=== PATIENT | male | born 1945 | race Caucasian/White ===

== ENCOUNTER 2024-08-29 20:39 | Inpatient (IN) | payer MEDICARE, OTHER ==
[2024-08-30] MEDS ORDERED: Acetaminophen 650 MG Suppository PR PRN (00:16)
[2024-08-30] MEDS ORDERED: Ondansetron PF 4 MG/2 ML Vial IVP PRN (00:16)
[2024-08-30 00:18] VITALS: BMI 21.2
[2024-08-30] MEDS: Dexamethasone 4 MG TAB PO SCH (02:16)
[2024-08-30] MEDS: Acetaminophen 325 MG TAB PO SCH (02:17)
[2024-08-30 04:07] LABS: #Basophils Less than 0.03 10x3/uL (0.0-0.2); #Eosinophils Less than 0.03 10x3/uL (0.0-0.7); %Basophils 0.1 % (0.0-1.0); %Monocytes 0.6 % (0.0-10.0); %Neutrophils 87.7 % (42.0-75.0); Hematocrit 37.3 % (42.0-52.0); Mean Corpuscular HGB CONC 32.2 g/dL (32.0-36.0); Mean Corpuscular Hemoglobin 29.9 pg (27.0-31.0); Mean Corpuscular Volume 92.8 fL (78.0-98.0); Mean Platelet Volume 9.9 fL (7.4-10.4); Platelet Count 209 10x3/uL (130-400); RBC Distribution Width 15.1 % (11.5-14.5); Red Blood Cell (RBC) Count 4.02 mill/uL (4.70-6.10)
[2024-08-30 04:29] LABS: ALT (SGPT) 25 U/L (8-55); AST (SGOT) 16 U/L (5-34); Albumin 3.5 g/dL (3.4-4.8); Alkaline Phosphatase 60 U/L (40-110); Anion Gap 15 mmol/L (10-20); BUN (Urea Nitrogen) 20 mg/dL (8.4-25.7); Bilirubin, Total 0.4 mg/dL (0.2-1.2); Calc. Creatinine Clearance 41 mL/min (70-130); Calcium 8.8 mg/dL (7.8-10.44); Carbon Dioxide 26 mmol/L (23-31); Chloride 106 mmol/L (98-107); Estimated GFR 70; Globulin 3.5 g/dL (2.4-3.5); Glucose 177 mg/dL (83-110); Sodium 143 mmol/L (136-145)
[2024-08-30] MEDS: Valsartan 80 MG TAB PO SCH (08:43)
[2024-08-30] MEDS: Famotidine 20 MG TAB PO SCH (08:44)
[2024-08-30] MEDS: Amlodipine 10 MG TAB PO SCH (08:44)
[2024-08-30] MEDS: Nebivolol HCl 5 MG TAB PO SCH (08:44)
[2024-08-30] MEDS: Aspirin 81 mg Enteric Coated Tablet PO SCH (08:44)
[2024-08-30] MEDS ORDERED: Famotidine 20 MG TAB PO SCH (09:00)
[2024-08-30] MEDS ORDERED: Aspirin 325 MG TAB PO SCH (09:00)
[2024-08-30] MEDS ORDERED: Famotidine/PF 20 mg/2ml Vial SLOW IVP SCH (09:00)
[2024-08-30] MEDS: Rosuvastatin 20 MG TAB PO SCH (21:29)
[2024-08-31] MEDS: Enoxaparin 30 MG (0.3 mL) SYRINGE SC SCH (10:03)
[2024-09-01] MEDS ORDERED: Proctozone-HC 30 GM TUBE TOP PRN (10:12)
[2024-09-01] MEDS: Hydrocortisone 2.5%/Pramoxine 1% CRM 30 GM TUBE TOP PRN (12:30)
[2024-09-01] MEDS: Ondansetron ODT 4 MG TAB PO PRN (12:40)
[2024-09-01 12:53] LABS: Bacteria/HPF None Seen HPF (None Seen); Bilirubin Negative (Negative); Blood, Urine 3+ (Negative); CAUTI Indications for Culture Dysuria,urgency,freq; Clarity Clear (Clear); Glucose, Urine (Dipstick) 150 mg/dL (Negative); Ketone, Urine Negative (Negative); Leukocyte Negative Leu/uL (Negative); Nitrite Negative (Negative); Protein, Urine (Dipstick) 70 mg/dL (Neg-Trace); RBC/HPF 0-3 HPF (0-3); Specific Gravity, Urine 1.019 (1.002-1.036); Squamous Epithelial None Seen HPF (0-3); Urobilinogen Normal mg/dL (Less than 2); WBC/HPF 0-3 HPF (0-3); pH, Urine 6.5 (5.0-9.0)
[2024-09-01 12:58] LABS: Urine Culture Reflex No No
[2024-09-01] MEDS: Valsartan 80 MG TAB PO SCH (20:36)
[2024-09-03] MEDS ORDERED: Thrombin 5000 UNITS/5 ML VIAL ONE ×2 (06:30→12:59)
[2024-09-03] MEDS ORDERED: Vancomycin 1 GM VIAL ONE (06:30)
[2024-09-03] MEDS ORDERED: Bacitracin Zinc Ointment 30 gm TUBE ONE (06:30)
[2024-09-03] MEDS ORDERED: PROPOFOL 20 ML ONE (06:55)
[2024-09-03] MEDS ORDERED: Fentanyl 250 MCG/5 ML VIAL ONE (06:55)
[2024-09-03] MEDS ORDERED: Rocuronium Bromide 10 MG/ML (10ML VIAL) ONE (06:56)
[2024-09-03] MEDS ORDERED: Lidocaine 1% PF 5 ML VIAL ONE (06:56)
[2024-09-03] MEDS ORDERED: CEFAZOLIN 2 GM VIAL ONE (07:07)
[2024-09-03] MEDS ORDERED: Sterile Water 10 ML ONE (07:37)
[2024-09-03] MEDS ORDERED: Dexamethasone 20 MG/5 ML VIAL ONE (08:21)
[2024-09-03] MEDS ORDERED: SUGAMMADEX SODIUM 200 MG/2 ML VIAL ONE (09:47)
[2024-09-03] MEDS ORDERED: HYDROmorphone 2 MG/ML VIAL SLOW IVP PRN (10:04)
[2024-09-03] MEDS ORDERED: Ondansetron PF 4 MG/2 ML Vial IVP PRN (10:04)
[2024-09-03] MEDS ORDERED: diphenhydrAMINE 50 MG/ML VIAL IM PRN (10:04)
[2024-09-03] MEDS ORDERED: diphenhydrAMINE 25 MG CAP PO PRN (10:04)
[2024-09-03] MEDS ORDERED: Naloxone HCl 0.4 mg/ml Vial IV PRN (10:04)
[2024-09-03] MEDS ORDERED: Promethazine HCl 25 MG/ML VIAL IM PRN ×2 (10:04)
[2024-09-03] MEDS ORDERED: Ondansetron HCl/PF 4 MG/2 ML Vial IVP PRN (10:04)
[2024-09-03] MEDS ORDERED: diphenhydrAMINE 50 MG/ML VIAL IVP PRN (10:04)
[2024-09-03] MEDS ORDERED: HYDROmorphone/PF 10 MG in Sodium Chloride 0.9% 99 ML IV PRN (10:04)
[2024-09-03] MEDS ORDERED: Communication Order-Pharmacy FS SCH (10:15)
[2024-09-03] MEDS ORDERED: PHENYLEPHRINE-NS 100 MCG/ML 10 ML SYRINGE ONE (10:18)
[2024-09-03] MEDS ORDERED: Sterile Water 20 ML ONE (10:19)
[2024-09-03] MEDS ORDERED: CEFAZOLIN 1 GM VIAL ONE (10:19)
[2024-09-03] MEDS ORDERED: Phenylephrine 10 MG/ML VIAL ONE (10:52)
[2024-09-03] MEDS ORDERED: Sodium Chloride 0.9% 250 ML 250 ML ONE (10:52)
[2024-09-03] MEDS ORDERED: Vecuronium 10 MG VIAL ONE (10:57)
[2024-09-03] MEDS ORDERED: Ondansetron PF 4 MG/2 ML Vial ONE (11:43)
[2024-09-03] MEDS ORDERED: Lidocaine 2% PF 5 ML VIAL ONE (12:39)
[2024-09-03] MEDS ORDERED: Ketorolac Tromethamine 30 MG (1 mL) VIAL IVP PRN (12:45)
[2024-09-03] MEDS ORDERED: Milk Of Magnesia 30 ML UDCUP PO PRN (12:45)
[2024-09-03] MEDS ORDERED: Mag-Al 1200 mg/1200 mg/30 ML UDCUP PO PRN (12:45)
[2024-09-03] MEDS ORDERED: Labetalol HCl 100 MG/20 ML VIAL ONE (12:57)
[2024-09-03] MEDS: Sodium Chloride 0.9% 1,000 ML IV SCH (15:24)
[2024-09-03] MEDS: CEFAZOLIN 2 GM in Sodium Chloride 0.9% 100 ML IVPB SCH (17:44)
[2024-09-04] MEDS: hydrALAZINE 20 MG/ML VIAL SLOW IVP PRN (01:18)
[2024-09-04 05:31] LABS: Anion Gap 16 mmol/L (10-20); BUN (Urea Nitrogen) 25 mg/dL (8.4-25.7); Calc. Creatinine Clearance 49 mL/min (70-130); Calcium 8.3 mg/dL (7.8-10.44); Carbon Dioxide 22 mmol/L (23-31); Chloride 102 mmol/L (98-107); Estimated GFR 86; Glucose 122 mg/dL (83-110); Potassium 3.4 mmol/L (3.5-5.1); Sodium 137 mmol/L (136-145)
[2024-09-04 05:39] LABS: #Basophils Less than 0.03 10x3/uL (0.0-0.2); #Eosinophils Less than 0.03 10x3/uL (0.0-0.7); %Basophils 0.1 % (0.0-1.0); %Lymphocytes 2.1 % (21.0-51.0); %Monocytes 9.5 % (0.0-10.0); %Neutrophils 87.8 % (42.0-75.0); Hematocrit 38.1 % (42.0-52.0); Hemoglobin 12.6 g/dL (14.0-18.0); Mean Corpuscular HGB CONC 33.1 g/dL (32.0-36.0); Mean Corpuscular Hemoglobin 30.2 pg (27.0-31.0); Mean Corpuscular Volume 91.4 fL (78.0-98.0); Mean Platelet Volume 9.9 fL (7.4-10.4); Platelet Count 247 10x3/uL (130-400); Red Blood Cell (RBC) Count 4.17 mill/uL (4.70-6.10)
[2024-09-04] MEDS: Pantoprazole 40 MG VIAL IVP SCH (08:32)
[2024-09-04] MEDS: tiZANidine HCl 4 MG TAB PO SCH (08:32)
[2024-09-04] MEDS ORDERED: Pantoprazole DR 40 MG TAB PO SCH (09:00)
[2024-09-04] MEDS: Dexamethasone 4 mg/ml Vial SLOW IVP SCH (11:28)
[2024-09-04] MEDS: tiZANidine HCl 4 MG TAB PO PRN (20:02)
[2024-09-05] MEDS ORDERED: Acetaminophen/Codeine 30-300mg Tablet PO PRN (08:35)
[2024-09-05] MEDS ORDERED: Fentanyl 100 MCG/2 ML VIAL SLOW IVP PRN (08:35)
[2024-09-05] MEDS ORDERED: fentaNYL 50 mcg/mL 1 mL Vial SLOW IVP PRN (08:38)
[2024-09-05 09:22] LABS: #Basophils Less than 0.03 10x3/uL (0.0-0.2); #Eosinophils Less than 0.03 10x3/uL (0.0-0.7); %Basophils 0.1 % (0.0-1.0); %Lymphocytes 1.9 % (21.0-51.0); %Monocytes 6.3 % (0.0-10.0); Hematocrit 36.6 % (42.0-52.0); Hemoglobin 11.9 g/dL (14.0-18.0); Mean Corpuscular HGB CONC 32.5 g/dL (32.0-36.0); Mean Corpuscular Hemoglobin 30.5 pg (27.0-31.0); Mean Corpuscular Volume 93.8 fL (78.0-98.0); Mean Platelet Volume 9.5 fL (7.4-10.4); Platelet Count 186 10x3/uL (130-400); RBC Distribution Width 15.2 % (11.5-14.5)
[2024-09-05 09:38] LABS: ALT (SGPT) 15 U/L (8-55); AST (SGOT) 30 U/L (5-34); Albumin 2.6 g/dL (3.4-4.8); Alkaline Phosphatase 44 U/L (40-110); Anion Gap 13 mmol/L (10-20); BUN (Urea Nitrogen) 26 mg/dL (8.4-25.7); Bilirubin, Total 0.4 mg/dL (0.2-1.2); Calc. Creatinine Clearance 48 mL/min (70-130); Calcium 8.8 mg/dL (7.8-10.44); Carbon Dioxide 25 mmol/L (23-31); Chloride 106 mmol/L (98-107); Estimated GFR 85; Globulin 3.7 g/dL (2.4-3.5); Glucose 116 mg/dL (83-110); Potassium 3.2 mmol/L (3.5-5.1); Protein, Total 6.3 g/dL (5.8-8.1); Sodium 141 mmol/L (136-145)
[2024-09-05 11:20] VITALS: BMI 21.2
[2024-09-05] MEDS: Potassium Chloride 20 MEQ TAB PO SCH (14:31)
[2024-09-05] MEDS: HYDROcodone/Acetaminophen 10/325 mg Tablet PO PRN (20:32)
[2024-09-06 05:29] LABS: #Basophils Less than 0.03 10x3/uL (0.0-0.2); #Eosinophils Less than 0.03 10x3/uL (0.0-0.7); %Basophils 0.1 % (0.0-1.0); %Lymphocytes 2.5 % (21.0-51.0); %Monocytes 4.9 % (0.0-10.0); %Neutrophils 91.7 % (42.0-75.0); Hematocrit 38.1 % (42.0-52.0); Hemoglobin 12.3 g/dL (14.0-18.0); Mean Corpuscular HGB CONC 32.3 g/dL (32.0-36.0); Mean Corpuscular Hemoglobin 30.5 pg (27.0-31.0); Mean Corpuscular Volume 94.5 fL (78.0-98.0); Mean Platelet Volume 10.2 fL (7.4-10.4); Platelet Count 224 10x3/uL (130-400); RBC Distribution Width 15.3 % (11.5-14.5); Red Blood Cell (RBC) Count 4.03 mill/uL (4.70-6.10)
[2024-09-06 06:20] LABS: ALT (SGPT) 47 U/L (8-55); AST (SGOT) 96 U/L (5-34); Albumin 2.8 g/dL (3.4-4.8); Alkaline Phosphatase 52 U/L (40-110); Anion Gap 16 mmol/L (10-20); BUN (Urea Nitrogen) 29 mg/dL (8.4-25.7); Bilirubin, Total 0.4 mg/dL (0.2-1.2); Calc. Creatinine Clearance 47 mL/min (70-130); Calcium 9.2 mg/dL (7.8-10.44); Carbon Dioxide 22 mmol/L (23-31); Chloride 106 mmol/L (98-107); Estimated GFR 82; Globulin 4.4 g/dL (2.4-3.5); Glucose 134 mg/dL (83-110); Potassium 3.7 mmol/L (3.5-5.1); Protein, Total 7.2 g/dL (5.8-8.1); Sodium 140 mmol/L (136-145)
[2024-09-06] MEDS: HYDROcodone/Acetaminophen 5/325 mg Tablet PO PRN (10:49)
[2024-09-07] MEDS: Loratadine 10 MG TAB PO PRN (02:53)
[2024-09-07] MEDS ORDERED: guaiFENesin ER 600 MG TAB PO PRN (03:19)
[2024-09-07 10:36] VITALS: BP 135/78; TEMP 97.6
== END 2024-09-07 13:44 | disposition home health service (06) | DRG 430 ==
LOC: 2SE 23:28 → SURG A 09-03 08:59
PROVIDERS: ADMIT Student in an Organized Health Care Education/Training Program; ATTEND Family Medicine
PROC: 0RG20A0 Fusion of 2 or more Cervical Vertebral Joints with Interbody Fusion Device, Anterior Approach, Anterior Column, Open Approach (ICD-10-PCS; principal; 2024-09-03)
PROC: 01N10ZZ Release Cervical Nerve, Open Approach (ICD-10-PCS; 2024-09-03)
PROC: 0RB30ZZ Excision of Cervical Vertebral Disc, Open Approach (ICD-10-PCS; 2024-09-03)
PROC: 0RG20J1 Fusion of 2 or more Cervical Vertebral Joints with Synthetic Substitute, Posterior Approach, Posterior Column, Open Approach (ICD-10-PCS; 2024-09-03)
DX: M48.02 Spinal stenosis, cervical region (principal); G95.89 Other specified diseases of spinal cord; I50.32 Chronic diastolic (congestive) heart failure; G99.2 Myelopathy in diseases classified elsewhere; R13.10 Dysphagia, unspecified; I25.10 Atherosclerotic heart disease of native coronary artery without angina pectoris; D72.829 Elevated white blood cell count, unspecified; T38.0X5A Adverse effect of glucocorticoids and synthetic analogues, initial encounter; Y92.238 Other place in hospital as the place of occurrence of the external cause; I11.0 Hypertensive heart disease with heart failure; R30.0 Dysuria; Z96.643 Presence of artificial hip joint, bilateral; I25.5 Ischemic cardiomyopathy; E78.5 Hyperlipidemia, unspecified; M54.12 Radiculopathy, cervical region; Z79.899 Other long term (current) drug therapy; Z95.5 Presence of coronary angioplasty implant and graft; Z79.82 Long term (current) use of aspirin
CPT/HCPCS: 36415; 36416; 70450; 70496; 70498; 70551; 72141; 72146; 72148; 80048; 80053; 80061; 81001; 83605; 84484; 85025; 85610; 85730; 87086; 93005; 93306; 96374; A4314; C1713; G0378; J0360; J0690; J1100; J1650; J2371; J2405; J2470; J2704; J3010; J3370; J7030; J7050; J8540; Q0162; Q9967

== ENCOUNTER 2025-06-11 11:04 | Outpatient (CLI) | payer OTHER | END 2025-06-11 11:05 | disposition home or self-care (01) | LOC: RAD 11:04 | PROVIDERS: ATTEND Surgery | DX: M47.816 Spondylosis without myelopathy or radiculopathy, lumbar region (principal) | CPT/HCPCS: 72100 ==

== ENCOUNTER 2025-07-30 10:51 | Outpatient (CLI) | payer OTHER ==
[2025-07-30 11:47] LABS: Estimated GFR - POC 86.0
== END 2025-07-30 10:52 | disposition home or self-care (01) ==
LOC: MRI 10:51
DX: G44.86 Cervicogenic headache (principal); M62.838 Other muscle spasm
CPT/HCPCS: 36415; 70553; 76376; 82565

== ENCOUNTER 2025-10-14 10:41 | Outpatient (CLI) | payer OTHER | END 2025-10-14 10:42 | disposition home or self-care (01) | LOC: ULT 10:41 | PROVIDERS: ATTEND Internal Medicine Gastroenterology | DX: Q44.6 Cystic disease of liver (principal); I10 Essential (primary) hypertension | CPT/HCPCS: 36415; 76700; 80048; 85025; 93976 ==